=== PATIENT | female | born 1980 | race Asian ===

== ENCOUNTER 2024-02-21 15:08 | Outpatient (CLI) | payer BC | END 2024-02-21 15:09 | disposition home or self-care (01) | LOC: CSHMAMMO 15:08 | DX: Z12.31 Encounter for screening mammogram for malignant neoplasm of breast (principal) | CPT/HCPCS: 77063; 77067 ==

== ENCOUNTER 2024-03-27 18:54 | Emergency (ER) | payer BC ==
[2024-03-27] MEDS ORDERED: Naproxen 500 MG TAB ONE (22:29)
[2024-03-27] MEDS ORDERED: Cyclobenzaprine 10 MG TAB ONE (22:29)
== END 2024-03-27 23:21 | disposition home or self-care (01) ==
LOC: CSHERS 18:54
DX: M79.602 Pain in left arm (principal); M54.6 Pain in thoracic spine; V43.62XA Car passenger injured in collision with other type car in traffic accident, initial encounter
CPT/HCPCS: 99284